=== PATIENT | female | born 1950 | race Caucasian/White ===

== ENCOUNTER 2018-02-26 05:12 | Day surgery (SDC) | payer MEDICARE, OTHER ==
[~2018-02-26] VITALS: Ht 170.2 cm; Wt 61.2 kg
--- NOTE | ~2018-02-26 | OP ---
PATIENT NAME: SAMANTHA TURCIOS MEDICAL RECORD: [id number] :52 LOCATION:D.OPS ADMISSION DATE: SURGEON: ARTEM ARTHUR MD DATE OF OPERATION: 02/26/2018 PREOPERATIVE DIAGNOSES: 1. Right upper extremity Devyn cell carcinoma. 2. Migraines. POSTOPERATIVE DIAGNOSES: 1. Right upper extremity Custer cell carcinoma. 2. Migraines. PROCEDURES: 1. Wide local excision of right upper extremity Devyn cell carcinoma (2 x 6 cm). 2. Right axillary sentinel lymph node biopsy. SURGEON: Artem Arthur MD REPORT OF PROCEDURE: Preoperatively, the patient underwent lymphoscintigraphy and it showed uptake in the patient's right axilla. The right upper extremity and axilla were prepped and draped in sterile fashion. A previous incision had been made in the right upper extremity from an attempted wide local excision, but the margins came back as positive. I marked a 1-cm margin in each direction and then extended the incision longitudinally until it measured out 2 cm x 6 cm. This section was excised using sharp dissection and electrocautery down to the fascia. The specimen was marked appropriately and sent off for frozen to check the margins. The margins all came back negative for any tumor. The subcutaneous tissues were irrigated out and any bleeding that was found was treated with electrocautery. The subcutaneous tissues were then reapproximated with interrupted 3-0 Vicryls and the skin was closed with running subcutaneous 5-0 Monocryl. We then approached the right axilla. A skin incision was made on the anterior aspect of the axilla and electrocautery was used to dissect through the subcutaneous tissues. We were able to localize the sentinel lymph node. This lymph node was excised using electrocautery. A reading of 360 was obtained. We inspected the remainder of the axilla and saw no other high readings registered. The sentinel lymph node was then sent off for permanent specimen. We irrigated out the subcutaneous tissues and stopped any bleeding with electrocautery. We then reapproximated the subcutaneous tissues with interrupted 3-0 Vicryls. The skin was then closed with running subcutaneous 5-0 Monocryl. A total of 15 mL of 0.25% Marcaine with epinephrine was used in the surrounding tissues of the 2 wounds. COMPLICATIONS: None. CONDITION: Stable. ANESTHESIA: General endotracheal and local. BLOOD LOSS: Minimal. TRANSINT:[id number] Voice Confirmation ID: [id number] DOCUMENT ID: [id number] CC: Brenda De APN [phone] OPERATIVE REPORT [id number] SAMANTHA TURCIOS CHRISTIAN MD at 1144 CC: BRENDA DE APN [phone] DICTATION DATE: 02/26/18 1436 [employer] MANAGER: 02/26/18 1450 [facility] [place] 02/26/18 [place] [id number]
[~2018-02-26 05:12] MED LIST: MOBIC7.5 MG PO; NEURONTIN 300300 MG PO; NODOLOR CAPSUL1 EACH PO; PREDNISONE5 MG PO; XANAX0.25 MG PO
[2018-02-26 06:46] VITALS: BP 139/75; Ht 170.2 cm; Wt 61.2 kg
[2018-02-26 06:49] LABS: BASOPHILS 0.2 % (0-2); EOSINOPHILS 0.8 % (0-7); HEMATOCRIT 42.1 % (36.0-48.0); LYMPHOCYTES 26.6 % (15-50); MCH 30.8 pg (26.0-34.0); MCHC 33.3 g/dL (31.0-37.0); MCV 92.5 fL (80.0-100.0); MEAN PLATELET VOLUME 9.8 fL (7.4-10.4); MONOCYTES 7.4 % (2-11); PLATELET COUNT 180 10x3/uL (130-400); RBC 4.55 10x6/uL (4.00-5.40); RDW 13.1 % (11.5-14.5)
[2018-02-26 07:04] LABS: APTT 26.2 SECONDS (22.8-39.4)
[2018-02-26 07:05] LABS: CALC OSMOLALITY 285 mosm/kg (275-300); CALCIUM 8.5 mg/dL (8.5-10.1); CARBON DIOXIDE 26.6 mmol/L (21.0-32.0); CHLORIDE - SERUM 108 mmol/L (98-107); CREATININE - SERUM 0.8 mg/dL (0.6-1.3); GLUCOSE 92 mg/dL (74-106); POTASSIUM - SERUM 3.8 mmol/L (3.5-5.1); SODIUM 143 mmol/L (136-145); UREA NITROGEN 16 mg/dL (7-18); eGFR NON AFRICAN AMERICAN 76 mL/min (90-120)
[2018-02-26 07:06] LABS: INR 0.92 (0.85-1.17)
[2018-02-26] MEDS ORDERED: HYDROCODONE-APA1 TAB PO (14:30)
== END 2018-02-26 17:00 | disposition home or self-care (01) ==
LOC: D.OPS 05:12 → D.PAN 08:00 → D.OPS 08:00 → D.NM 08:00 → D.OPS 17:00
PROVIDERS: Anesthesiology; Surgery
DX: C4A.61 Merkel cell carcinoma of right upper limb, including shoulder (principal); Z01.812 Encounter for preprocedural laboratory examination